=== PATIENT | female | born 1950 | race African-American/Black ===

== ENCOUNTER 2018-06-04 09:06 | Emergency (ER) | payer OTHER, MEDICAID ==
[~2018-06-04] VITALS: Ht 162.6 cm; Wt 68.9 kg
[2018-06-04 09:37] VITALS: BP 160/90
[2018-06-04] MEDS ORDERED: KETOROLAC TROMETH 60MG/2ML VIAL IM ONE (10:30)
== END 2018-06-04 11:06 | disposition home or self-care (01) ==
LOC: ER 09:06
DX: M50.121 Cervical disc disorder at C4-C5 level with radiculopathy (principal); H65.02 Acute serous otitis media, left ear; E78.5 Hyperlipidemia, unspecified; Z88.6 Allergy status to analgesic agent
CPT/HCPCS: 72040; 93005; 96372; 99284; J1885